=== PATIENT | female | born 1970 | race Caucasian/White ===

== ENCOUNTER 2022-03-20 06:27 | Day surgery (SDC) | payer OTHER ==
[2022-03-20] MEDS ORDERED: LACTATED RINGERS 1,000 ML IV ONE ×2 (06:35→08:15)
--- NOTE | 2022-03-20 07:25 | ANESTHESIA ---
Pre-Anesthesia VS, & Labs - Diagnosis screening - Procedure colonoscopy Vital Signs: Temp Pulse Resp BP Pulse Ox O2 Flow Rate 36.3 C L 83 16 133/85 H 98 0 03/20/22 06:35 03/20/22 06:35 03/20/22 06:35 03/20/22 06:35 03/20/22 06:35 03/20/22 06:35 Height: 5 ft 4 in Weight (kg): 64.5 kg Body Mass Index: 24.4 BMI Classification: Normal - NPO >8 hours - Is Patient ?: No Anes History & Medical History - Anesthetic History Anesthesia Complications: reports: No previous complications Family history of Anesthesia Complications: Denies Family history of Malignant Hyperthermia: Denies - Medical History Cardiovascular: reports: None Pulmonary: reports: None Gastrointestinal: reports: Ulcers Urinary: reports: None Musculoskeletal: reports: None Endocrine/Autoimmune: reports: HyPOthyroidism Blood Disorders: reports: None Skin: reports: None Smoking Status: Never smoker Psychosocial: reports: No issues indicated - Surgical History General: reports: Appendectomy Eyes Ears Nose Throat (EENT): reports: Tonsil/Adenoidectomy Exam General: Alert, Oriented x3, Cooperative, No acute distress Dental: WNL Mouth Openin Fingerbreadth Neck Mobility: Normal Mallampati classification: II Thyromental Distance: 4-6 cm Respiratory: Lungs clear Cardiovascular: Regular rate, Normal S1, Normal S2, No murmurs Mental/Cognitive Status: Alert/Oriented X3 Cognitive Status: Within normal limits Plan Anesthesia Type: General Consent for Procedure(s) Verified and Reviewed: Yes Code Status: Attempt Resuscitation ASA classification: 2-Mild systemic disease Is this case an emergency?: No
[2022-03-20] MEDS ORDERED: PROPOFOL 200 MG/20 ML VIAL IVP ONE ×2 (07:28→07:49)
[2022-03-20] MEDS ORDERED: MIDAZOLAM 2 MG/2 ML VIAL ONE (07:28)
[2022-03-20 08:38] VITALS: BP 111/67
--- NOTE | 2022-03-20 12:46 | ANESTHESIA POST OP EVALUATION ---
Anesthesia Post Eval - Post Anesthesia Eval Vitals: Last Vital Signs Temp 36.5 C 03/20/22 08:37 Pulse 59 L 03/20/22 08:37 Resp 16 03/20/22 08:37 BP 111/67 03/20/22 08:37 Pulse Ox 100 03/20/22 08:37 O2 Flow Rate 0 03/20/22 06:35 CV Function Including HR & BP: Stable Pain Control: Satisfactory Nausea & Vomiting: Negative Mental Status: Baseline Respiratory Status: Airway Patent Hydration Status: Satisfactory Anesthesia Complications: None
== END 2022-03-20 06:28 | disposition home or self-care (01) ==
LOC: SDS 06:27
PROVIDERS: ATTEND Surgery
PROC: 0DBN8ZZ Excision of Sigmoid Colon, Via Natural or Artificial Opening Endoscopic (ICD-10-PCS; 2022-03-20)
PROC: 0DBK8ZZ Excision of Ascending Colon, Via Natural or Artificial Opening Endoscopic (ICD-10-PCS; principal; 2022-03-20 07:30)
DX: Z12.11 Encounter for screening for malignant neoplasm of colon (principal); D12.2 Benign neoplasm of ascending colon; K63.5 Polyp of colon; K64.8 Other hemorrhoids; E03.9 Hypothyroidism, unspecified
CPT/HCPCS: 45380; J7120